=== PATIENT | male | born 1995 | race African-American/Black ===

== ENCOUNTER 2020-10-19 10:47 | Emergency (ER) | payer OTHER, SELFPAY ==
[2020-10-19 11:10] VITALS: BP 141/87; PULSE 78; RESP 16; TEMP 36.1; O2SAT 99
--- NOTE | 2020-10-19 11:10 | ED.MALEGU ---
HPI - Male Genitourinary General Chief complaint: Urogenital-Male Stated complaint: poss kidney infection Time Seen by Provider: 10/19/20 11:10 Source: patient Mode of arrival: ambulatory Limitations: no limitations History of Present Illness HPI Narrative: Shlomo Martell is a 25 yo male with no PMH who comes to express care with urinary frequency last few days and low back pain x 2 weeks. Was checked for STDs and was negative.States the back pain is also in flank Patient states that pain has been intermittent for the last month and his lower back. He is he is well-developed states that he has been working a lot but also has worked out. Denies any use of steroids. No nausea vomiting Related Data Home Medications Medication Instructions Recorded Confirmed No Home Medications 10/19/20 10/19/20 Allergies Allergy/AdvReac Type Severity Reaction Status Date / Time No Known Allergies Allergy Mild Verified 10/19/20 11:04 Review of Systems Review of Systems: Narrative: CONSTITUTIONAL: Denies fever, chills, sweats. EYES: Denies visual changes, redness, discharge. ENT: Denies rhinorrhea, congestion, sore throat, otalgia. CARDIOVASCULAR: Denies chest pain, palpitations, edema. RESPIRATORY: Denies dyspnea, wheezing, cough GASTROINTESTINAL: Denies abdominal pain, nausea, vomiting, diarrhea. GENITOURINARY: Complaining of dysuria, hematuria, abnormal discharge right-sided low back pain SKIN: Denies rash or itching. NEUROLOGIC: Denies numbness, or focal weakness. PSYCHIATRIC: Denies anxiety or depression. [facility] Past Medical History Medical History (Updated 10/19/20 @ 13:39 by Kiersten Akins MD) No acute medical problems Patient denies medical problems Surgical History Surgical History (Updated 10/19/20 @ 13:39 by Kiersten Akins MD) No pertinent past surgical history Family History Family History Other Hypertension Social History Social History Smoking status: Never smoker Alcohol intake: current Gender identity (if verbalized by the patient): Male Comments At time of signature, I agree with nursing past medical, surgical, social and family history. There is no relevant family history pertinent to the presenting complaint. Blood pressure is elevated at this visit given list of PCPs to follow-up [facility]. Exam Narrative: Exam Narrative: GENERAL: This is a well-nourished, well-developed patient, in mild distress. HEAD: normocephalic, atraumatic. EYES: Sclera clear/white. Vision is grossly intact. EARS: External ears normal. Hearing grossly intact. NOSE: External nose normal without nasal discharge, nares without redness, no rhinorrhea. THROAT: Mucous membranes moist, CARDIOVASCULAR: Regular rate and rhythm without murmurs, gallops, or rubs. RESPIRATORY: Clear to auscultation. Breath sounds equal bilaterally. No wheezes, rales, or rhonchi. GASTROINTESTINAL: Abdomen soft, RLQ tenderness,periumbilical tenderness, no R CVA tenderness, normal bowel sounds SKIN: warm, intact with no suspicious lesions or rash, good texture and turgor. NEURO: awake, alert, and oriented to person, place and time. There were no obvious focal neurologic abnormalities. Steady gait EXTREMITIES: Normal range of motion. BACK: Nontender without deformity Course Course Emergency Course: Patient came here for complaints of dysuria and lower right back pain-back pain x4 weeks, dysuria during this week On exam however his pain is actually right lower quadrant /periumbilical regular pain and will need follow-up in terms of blood work and possible US/CT scan to exclude multiple differential diagnosis Vital Signs Vital signs: Vital Signs Temperature 96.9 F L 10/19/20 11:10 Pulse Rate 78 10/19/20 11:10 Respiratory Rate 16 10/19/20 11:10 Blood Pressure 141/87 H 10/19/20 11:10 Pulse Oximetry 99 10/19/20
== END 2020-10-19 11:43 | disposition short-term general hospital (02) ==
PROVIDERS: Emergency Provider Nurse Practitioner
DX: R10.31 Right lower quadrant pain (principal)
CPT/HCPCS: 81003; 99212; G0463

== ENCOUNTER 2020-10-19 13:12 | Emergency (ER) | payer OTHER, SELFPAY ==
--- NOTE | ~2020-10-19 | US_ITS ---
EXAMINATION: US right upper quadrant DATE: 10/19/2020 16:25 INDICATION: Abdominal pain TECHNIQUE: Multiple grayscale and Doppler ultrasound images of the abdomen were obtained. COMPARISON: None FINDINGS: The pancreatic head and body are normal in appearance. The pancreatic tail is not visualized. Liver has normal echogenicity and contour, with a smooth surface. No liver lesion identified. No intrahepat ic biliary duct dilation suspected. Portal venous flow was seen in the hepatopetal, normal direction and has normal Doppler waveform. There are multiple small nonshadowing nodules measuring up to 4 mm i n maximal diameter along the wall of the gallbladder including along both the dependent and nondepend ent wall which be most consistent with gallbladder polyps. The gallbladder is otherwise normal in ayala earance. There is no shadowing cholelithiasis. The common bile duct measures 6 mm, which is normal. S onographic Sanchez sign was reported as negative by the garage worker. Visualized proximal inferior vena cava is normal. IMPRESSION: 1. Several 4 mm or smaller gallbladder polyps. Otherwise unremarkable right upper quadrant ultrasound . Reviewed, dictated and finalized at location A. ER [employer] IMPRESSION: 1. Several 4 mm or smaller gallbladder polyps. Otherwise unremarkable right upp er quadrant ultrasound.
--- NOTE | ~2020-10-19 | CT_ITS ---
EXAMINATION: CT abdomen pelvis w con DATE: 10/19/2020 17:21 INDICATION: Right lower quadrant abdominal pain. TECHNIQUE: Computed tomography (CT) of the abdomen and pelvis was performed with 100 mL Omnipaque-350 intravenous contrast. Automated exposure control and iterative reconstruction technique were employe d. The dose-length product was 472.16 mGy-cm. COMPARISON: None FINDINGS: Lung bases are clear. Heart size is normal. No pericardial or pleural effusion. Liver, spleen, pancre as, right kidney and bilateral adrenal glands are normal. A couple small low-attenuation likely right renal cysts which are too small to definitively characterize. Gallbladder appears normal. The tiny g allbladder polyps seen on prior ultrasound are not appreciated likely due to their small size. No abn ormal bowel wall thickening or obstruction. The appendix is not visualized. No pericecal inflammatory change to suggest acute appendicitis. Bladder is normal. No free intraperitoneal gas or fluid. No pa thologically enlarged abdominal or pelvic lymphadenopathy. Minimal chronic-appearing anterior wedging at T11-L4. IMPRESSION: 1. No acute intra-abdominal/pelvic process. Reviewed, dictated and finalized at location A. [employer]
[2020-10-19 13:17] VITALS: BP 175/103; PULSE 73; RESP 18; TEMP 36.3; O2SAT 98
--- NOTE | 2020-10-19 13:36 | ED.ABDPAIN ---
HPI - Abdominal Pain General Chief Complaint: Abdominal Pain Stated Complaint: abdominal pain Time Seen by Provider: 10/19/20 13:28 Source: patient Mode of arrival: ambulatory Limitations: no limitations History of Present Illness HPI narrative: This patient is a 25 year old male who presents from [facility] for evaluation of right flank pain. He developed right lower back pain 10 days. His pain is intermittent, and it worsed 2 days ago. He states the pain woke him up from his sleep. He states his pain migrated from his right lower back to his right lower abdomen. He thought his pain was due to a kidney infection so he went to [facility] for evaluation. [facility] reports patient's Urine dip was unremarkable so he was sent to ER. He reports his pain is 3/10. He denies associated nausea, vomiting, fever, chills, dysuria, hematuria, testicular swelling or pain. Related Data Allergies Allergy/AdvReac Type Severity Reaction Status Date / Time No Known Allergies Allergy Mild Verified 10/19/20 11:04 Review of Systems Review of Systems: All systems reviewed & are unremarkable except as noted in HPI and below PMFSH Past Medical History Medical History (Updated 10/19/20 @ 18:05 by Kiersten Akins MD) No acute medical problems Patient denies medical problems Surgical History Surgical History (Updated 10/19/20 @ 13:39 by Kiersten Akins MD) No pertinent past surgical history Family History Family History Other Hypertension Social History Social History Smoking status: Never smoker Alcohol intake: current Gender identity (if verbalized by the patient): Male Exam Const: General: no acute distress and alert Orientation/consciousness: patient oriented x3 Eyes: EOM: EOMs intact bilaterally Chest: Chest palpation & inspection: normal inspection of the chest Resp: Effort & Inspection: normal respiratory effort and no retractions Auscultation: clear to auscultation bilaterally Cardio: Rate: regular rate Rhythm: regular rhythm Heart sounds: no murmurs GI: GI Palp: Yes Soft to palpation, Yes Tenderness to palpation present (GI) (RLQ) and No Guarding due to palpation present (GI) Auscultation: normal bowel sounds Skin: General skin exam: normal color Rashes: no rashes Neuro: General: patient oriented x3 and moves all extremities Psych: Mental Status: mental status grossly normal Affect: normal affect Course Reevaluation(s) Reevaluation #1: I discussed with patient labs and ultrasound findings. He understands he will need to follow up with PCP regarding abnormal liver enzymes. He is agreeable to CT to evaluation right lower abdominal pain Date: 10/19/20 Time: 16:43 Vital Signs Vital signs: Vital Signs Temperature 97.4 F L 10/19/20 13:17 Pulse Rate 73 10/19/20 13:17 Respiratory Rate 18 10/19/20 13:17 Blood Pressure 175/103 H 10/19/20 13:17 Pulse Oximetry 98 10/19/20 13:17 Temperature 97.4 F L 10/19/20 13:17 Pulse Rate 69 10/19/20 16:57 Respiratory Rate 17 10/19/20 16:57 Blood Pressure 136/63 10/19/20 16:57 Pulse Oximetry 99 10/19/20 16:57 MDM - Abdominal Pain Lab Data Attestation: I reviewed the patient's lab results. Result diagrams: 10/19/20 13:34 10/19/20 13:34 Labs: Lab Results 10/19/20 10/19/20 10/19/20 Range/Units 13:34 13:34 13:34 WBC 3.3 L (4.5-10.0) K/mm3 RBC 5.28 (4.6-6.20) M/mm3 Hgb 15.9 (14.0-18.0) g/dL Hct 46.9 (42.0-52.0) % MCV 88.8 (80-100) fl MCH 30.1 (26-34) pg MCHC 33.9 (32-36) g/dl RDW 12.4 (11.5-14.5) % Plt Count 239 (150-375) k/mm3 MPV 9.8 (7.4-10.4) fl Immature Gran % (Auto) 0.3 (0-0.5) % Neut % (Auto) 47.1 (45.5-73.1) % Lymph % (Auto) 39.5 (18.3-44.2) % [place] % (Auto) 11.6 H (2.6-8.5) %
[2020-10-19 13:47] LABS: Basophils Percent Auto 0.6 % (0.2-1.2); Eosinophils Percent Auto 0.9 % (0-4.4); Hematocrit 46.9 % (42.0-52.0); Hemoglobin 15.9 g/dL (14.0-18.0); Immature Granulocyte Absolute 0.01 K/mm3 (0.00-0.031); Immature Granulocyte Percent A 0.3 % (0-0.5); Lymphocytes Percent Auto 39.5 % (18.3-44.2); Mean Corpuscular HGB Conc 33.9 g/dl (32-36); Mean Corpuscular Hemoglobin 30.1 pg (26-34); Mean Corpuscular Volume 88.8 fl (80-100); Mean Platelet Volume 9.8 fl (7.4-10.4); Monocytes Absolute Auto 0.4 K/mm3 (0.1-0.6); Monocytes Percent Auto 11.6 % (2.6-8.5); Neutrophils Absolute Auto 1.6 K/mm3 (1.3-6.7); Neutrophils Percent Auto 47.1 % (45.5-73.1); Platelet Count Result 239 k/mm3 (150-375); Red Blood Count 5.28 M/mm3 (4.6-6.20); Red Cell Distribution Width 12.4 % (11.5-14.5); White Blood Count 3.3 K/mm3 (4.5-10.0)
[2020-10-19 13:54] LABS: Add Urine Microscopic? NO; Appearance Urine Clear (Clear); Bilirubin Urine Negative (Negative); Blood Urine Negative (Negative); Color Urine Colorless (Yellow); Glucose Urine UA Negative (Negative); Ketones Urine Negative (Negative); Leukocyte Esterase Ur Negative LEU/UL (Negative); Nitrate Urine Negative (Negative); Protein Urine Negative (Negative); RBC Urine 0-2 /hpf (0-2); Specific Grav Ur 1.008 (1.001-1.035); Urobilinogen Urine Negative mg/dL (<2.0)
[2020-10-19 13:57] LABS: Potassium 4.5 mmol/L (3.4-5.0)
[2020-10-19 14:05] LABS: Alanine Aminotransferase 31 U/L (4-50); Albumin Level 4.8 g/dL (3.5-5.1); Alkaline Phosphatase 37 U/L (38-126); Anion Gap 5 mmol/L (8-16); Aspartate Amino Transferase 67 U/L (17-59); Bilirubin,Total 1.5 mg/dL (0.2-1.3); Blood Urea Nitrogen 15 mg/dL (9-20); Calcium 9.6 mg/dL (8.4-10.2); Carbon Dioxide 32 mmol/L (22-30); Chloride 101 mmol/L (98-107); Estimated CRCL calculation 88 ml/min; Estimated Glomerular Filt Rate > 60; Glucose 96 mg/dL (75-110); Lipase 176 U/L (23-300); Sodium 138 mmol/L (137-145)
[2020-10-19 14:50] VITALS: BP 149/62; PULSE 65; RESP 15; O2SAT 99
--- NOTE | 2020-10-19 16:24 | PC.NURSE ---
Pt to U/S via w/c.
[2020-10-19 16:57] VITALS: BP 136/63; PULSE 69; RESP 17; O2SAT 99
[2020-10-19 18:20] VITALS: BP 136/84; PULSE 72; RESP 14; O2SAT 100
== END 2020-10-19 18:21 | disposition home or self-care (01) ==
PROVIDERS: Emergency Provider General Practice; PCP Emergency Medicine
DX: R10.31 Right lower quadrant pain (principal); K82.4 Cholesterolosis of gallbladder
CPT/HCPCS: 36415; 74177; 76705; 80053; 81003; 83690; 85025; 99284; Q9967

== ENCOUNTER 2023-12-15 19:56 | Emergency (ER) | payer OTHER, SELFPAY ==
--- NOTE | ~2023-12-15 | XR_ITS ---
Clinical Indication: Leukocytosis PA and lateral views of the chest: Comparison: None Findings: The lungs are clear, without evidence of focal consolidation or pleural effusion. Cardiome diastinal silhouette is within normal limits. Bones and soft tissues are unremarkable. Impression: Normal chest. Reviewed, dictated and finalized at location . Impression: Normal chest.
[2023-12-15 20:07] VITALS: BP 151/84; PULSE 115; RESP 18; TEMP 37.2; O2SAT 100
[2023-12-16 00:49] LABS: Influenza A QL RT-PCR Negative (Negative); Influenza B QL RT-PCR Negative (Negative); RSV RNA, RT-PCR Negative (Negative); SARS-CoV-2 RNA PCR Negative (Negative)
--- NOTE | 2023-12-16 00:51 | ED.RECABL ---
HPI - Recheck/Abnormal Lab/Rx General Chief Complaint: Recheck/Abnormal Lab/Rx Stated Complaint: abdnormal labs Time Seen by Provider: 12/16/23 00:01 Source: patient Mode of arrival: ambulatory Limitations: no limitations History of Present Illness HPI narrative: Patient is a 28-year-old male who presents the ED with report of abnormal labs. Patient reports he had outpatient blood work drawn today for a routine appointment with his PCP and was told to come to the ED for further evaluation as his WBC count was low. Reviewed labs on patient's my chart on phone, showing leukopenia to 1.8. 33% neutrophils. ANC 0.61. Patient showed two other WBC counts from August and October, both in the 2-3 range. Records here from 2020 show WBC of 3.3, normal differential at that time. Patient states he has been in his normal state of health. He denies any recent illness, cough, cold sx's, fevers, chills, N/V/D, rashes/wounds. No hx of CA, no FHx of blood disorders or cancers that he is aware of. Related Data Allergies Allergy/AdvReac Type Severity Reaction Status Date / Time No Known Allergies Allergy Mild Verified 10/19/20 11:04 Review of Systems Review of Systems: CONSTITUTIONAL: Denies fever, chills, or sweats. ENT: Denies rhinorrhea, congestion, sore throat. CARDIOVASCULAR: Denies chest pain, palpitations, or edema. RESPIRATORY: Denies cough or dyspnea. GASTROINTESTINAL: Denies abdominal pain, nausea, vomiting, or diarrhea. GENITOURINARY: Denies dysuria or hematuria. MUSCULOSKELETAL: Denies back pain, extremity pain, myalgia. NEUROLOGIC: Denies headache, dizziness, numbness, or weakness. All systems reviewed & are unremarkable except as noted in HPI and below PMFSH Past Medical History Medical History No acute medical problems Patient denies medical problems Surgical History Surgical History No pertinent past surgical history Family History Family History Other Hypertension Social History Social History Smoking status: Never smoker Alcohol intake: current Gender identity (if verbalized by the patient): Male Exam Narrative: GENERAL: Well appearing, well-nourished, non-toxic, in no acute distress. HEAD: Normocephalic, atraumatic. RESPIRATORY: Airway patent, respirations nonlabored. Clear to auscultation bilaterally, no rales, rhonchi, wheezing. CARDIOVASCULAR: Regular rate and rhythm MUSCULOSKELETAL: Moves all extremities. No gross deformities. SKIN: Warm, dry, normal color. NEURO: A&O X3. Speech clear. PSYCHIATRIC: Appropriate mood and affect. Normal interaction. Course Vital Signs Vital signs: Vital Signs Temperature 99 F 12/15/23 20:07 Pulse Rate 115 H 12/15/23 20:07 Respiratory Rate 18 12/15/23 20:07 Blood Pressure 151/84 H 12/15/23 20:07 Pulse Oximetry 100 12/15/23 20:07 Oxygen Delivery Room Air 12/15/23 20:07 Temperature 99 F 12/15/23 20:07 Pulse Rate 58 L 12/16/23 03:00 Respiratory Rate 17 12/16/23 03:00 Blood Pressure 117/75 12/16/23 03:00 Pulse Oximetry 98 12/16/23 03:00 Oxygen Delivery Room Air 12/15/23 20:07 MDM - Recheck/Abnormal Lab/Rx MDM Narrative Medical decision making narrative: Patient presented to ED with concern for abnormal labs. Showing leukopenia. History of similar, though down to 1.8 today. ANC low. Patient denies any recent infectious symptoms. Denies any other acute concerns. Viral swabs are negative. Added on BMP and unremarkable. UA clear. Chest x-ray interpreted by myself clear. No heme/onc electronic specialist here today. Discussed case with Dr. Pryor, hematology @ [facility], advised office will call patient to make follow-up appointment for further evaluation. Patient in agreement
[2023-12-16 01:10] LABS: Appearance Urine Clear (Clear); Bilirubin Urine Negative (Negative); Blood Urine Negative (Negative); Color Urine Yellow (Yellow); Glucose Urine UA Negative (Negative); Ketones Urine Negative (Negative); Leukocyte Esterase Ur Negative LEU/UL (Negative); Nitrate Urine Negative (Negative); Protein Urine Negative (Negative); Urobilinogen Urine 0.2 mg/dL (<2.0); pH Urine 5.5 (5.0-9.0)
[2023-12-16 01:24] LABS: Anion Gap 7 mmol/L (4-12); Blood Urea Nitrogen 15 mg/dL (9-20); Calcium 9.4 mg/dL (8.4-10.2); Carbon Dioxide 26 mmol/L (22-30); Chloride 103 mmol/L (98-107); Estimated CRCL calculation 81 ml/min; Estimated Glomerular Filt Rate > 60; Glucose 112 mg/dL (65-110); Potassium 3.4 mmol/L (3.4-5.0); Sodium 136 mmol/L (137-145)
[2023-12-16 01:46] VITALS: BP 142/76; PULSE 66; RESP 18; O2SAT 97
[2023-12-16 01:58] LABS: Add Urine Microscopic? NO
[2023-12-16 03:00] VITALS: BP 117/75; PULSE 58; RESP 17; O2SAT 98
== END 2023-12-16 03:00 | disposition home or self-care (01) ==
PROVIDERS: Emergency Provider Physician Assistant; PCP Student in an Organized Health Care Education/Training Program
DX: D72.819 Decreased white blood cell count, unspecified (principal)
CPT/HCPCS: 36415; 71046; 80048; 81003; 87637; 99283

== ENCOUNTER 2024-12-07 07:01 | Outpatient (CLI) | payer OTHER, SELFPAY ==
--- NOTE | ~2024-12-07 | MR_ITS ---
MRI of the lumbar spine Clinical History: Back pain Technique: Axial T2-weighted images, and sagittal T1-weighted, T2-weighted, and and T2 fat-sat images were acquired. Findings: There is no fracture or subluxation of the lumbar spine. Vertebral bodies maintain normal h eight and alignment. There is straightening of normal lumbar lordosis. No suspicious bone marrow sign al abnormality seen. At L1-L2, there is no disc bulge or herniation. No spinal canal stenosis or neural foraminal narrowin g. At L2-L3, there is moderate degenerative disc narrowing. There is no disc bulge. No spinal canal sten osis or neural foraminal narrowing. At L3-L4, there is moderate to advanced degenerative disc narrowing. No disc bulge or herniation. The re is mild facet hypertrophy. No central canal stenosis or definite neural foraminal narrowing. At L4-L5, there is moderate degenerative disc narrowing with mild disc bulge and mild facet arthropat hy. Probable tiny annular fissure. No central canal stenosis. Probable mild bilateral neural foramina l narrowing. At L5-S1, there is no disc bulge or herniation. There is mild facet arthropathy. No central canal shae nosis or definite neural foraminal narrowing. Paravertebral soft tissues are unremarkable. Impression: Mild spondylosis, as above. Reviewed, dictated and finalized at location M. Impression: Mild spondylosis, as above.
== END 2024-12-07 07:02 | disposition home or self-care (01) ==
LOC: MICIMG 07:01
PROVIDERS: PCP Student in an Organized Health Care Education/Training Program; Visit Provider Student in an Organized Health Care Education/Training Program
DX: R93.7 Abnormal findings on diagnostic imaging of other parts of musculoskeletal system (principal); M47.896 Other spondylosis, lumbar region
CPT/HCPCS: 72148